=== PATIENT | female | born 1985 | race American Indian/Alaskan Native ===

== ENCOUNTER 2018-04-14 11:16 | Emergency (ER) | payer OTHER ==
--- NOTE | 2018-04-14 12:10 | Emergency Department Report ---
Blank Doc - Documentation Documentation: Patient is a 33-year-old [place] female who is presenting with 2 days of vaginal bleeding. Patient is probably 6 weeks . Patient states bleeding is at the level of.. Chest was having a pressure sensation in the suprapubic region status is 3 out of 10 in severity. Patient denies any nausea vomiting diarrhea syncope. Patient has not had an ultrasound this as of yet she was in the process of picking her VIRTUAL REALITY SPECIALIST. Patient will have a quant urinalysis ABO Rh and ultrasound done here in emergency department.
[2018-04-14 12:38] LABS: Bacteria,Urine 1+ /HPF (Negative); Bilirubin,Urine NEG (Negative); Blood,Urine LG (Negative); Color,Urine Yellow (Yellow); Protein,Urine <15 mg/dL mg/dL (Negative); Urobilinogen,Urine < 2.0 mg/dL (<2.0)
--- NOTE | 2018-04-14 14:54 | Ultrasound Report ---
ULTRASOUND OB LESS THAN 14 WEEKS FETUS ULTRASOUND OB TRANSVAGINAL HISTORY: Vaginal bleeding during . COMPARISON: None. TECHNIQUE: Transabdominal and transvaginal ultrasound with color doppler interrogation. FINDINGS: Uterus: The uterus measures 13 x 7 x 9 cm. Normal cervix. Endometrium: An intrauterine gestational sac containing a pole and yolk sac is identified. Heart rate measures 152 beats per minute. Estimated age on ultrasound as 7 weeks, 3 days. There is a large predominantly hypoechoic collection adjacent to the gestational sac on the right side. There is no internal perfusion on Doppler interrogation. This apparently represents a very large subchorionic hemorrhage measuring up to 7.1 x 2.7 cm. Right ovary: 5.4 x 1.7 x 4.4 cm. No focal abnormality. Left ovary: 3.7 x 2.2 x 2.4 cm. A 1.7 cm corpus luteum cyst is suspected. No pelvic fluid or mass is identified. Normal color doppler interrogation. IMPRESSION: Viable single intrauterine as described. Very large subchorionic hemorrhage is suspected as described.
--- NOTE | 2018-04-14 15:05 | Emergency Department Report ---
ED Female HPI - General Chief complaint: Vaginal Bleeding Stated complaint: VAGINAL BLEEDING AND PAIN Time Seen by Provider: 04/14/18 12:04 Source: patient, family Mode of arrival: Ambulatory Limitations: No Limitations - History of Present Illness Initial comments: Patient is a 33-year-old [place] female who is presenting with 2 days of vaginal bleeding. Patient is probably 6 weeks . Patient states bleeding small amounts but when it started 2 days ago she said it was more bleeding. She denies any clots. She is reporting some pelvic cramping that on and off. Reports urinary frequency and urgency but no burning. Denies any back pain. Patient does not have CIRCLE SAW OPERATOR reports she'll have 1 prior Tuesday. suprapubic region status is 3 out of 10 in severity. No alleviating factor or exacerbating factor. Patient denies any nausea vomiting diarrhea syncope. Patient has not had an ultrasound this as of yet she was in the process of picking her CIRCLE SAW OPERATOR. No medication taken. She is on a multivitamin. Denies any vaginal discharge and has no concern for STDs. MD Complaint: vaginal bleeding, pelvic pain Onset/Timin -: days(s) Location: suprapubic Radiation: non-radiating Severity: mild Severity scale (0 -10): 3 Quality: cramping Consistency: intermittent Improves with: none Worsens with: none Are you Now?: Yes (1 month) Last Menstrual Period: 02/19/18 EDC: 11/26/18 Associated Symptoms: vaginal bleeding, abdominal pain, other (urgency and frequency). denies: vaginal discharge, nausea/vomiting, fever/chills, headaches , loss of appetite, dysuria, hematuria, rash, seizure, shortness of breath, syncope, weakness - Related Data Sexually active: Yes : 2 Para: 1 (AGE 12) Previous Rx's Medication Instructions Recorded Last Taken Type Cephalexin [Keflex] 500 mg PO Q12H 7 Days #14 cap 04/14/18 Unknown Rx Vit,Calc76/Iron/Folic 1 each PO QDAY 30 Days #30 tablet 04/14/18 Unknown Rx [Pnv 29-1 Tablet] Allergies Allergy/AdvReac Type Severity Reaction Status Date / Time No Known Allergies Allergy Unverified 04/14/18 11:23 ED Review of Systems ROS: Stated complaint: VAGINAL BLEEDING AND PAIN Other details as noted in HPI Constitutional: denies: chills, fever Eyes: denies: eye discharge ENT: denies: throat pain, congestion Respiratory: denies: cough, shortness of breath, SOB with exertion, SOB at rest , stridor, wheezing Cardiovascular: denies: chest pain, palpitations, dyspnea on exertion, orthopnea , edema, syncope, paroxysmal nocturnal dyspnea Gastrointestinal: abdominal pain. denies: nausea, vomiting, diarrhea, constipation, hematemesis, melena, other Genitourinary: urgency, frequency, abnormal menses, other (vaginal spotting). denies: dysuria, hematuria, discharge, dyspareunia Musculoskeletal: denies: back pain, joint swelling, arthralgia Skin: denies: rash, lesions Neurological: denies: headache, weakness ED Past Medical Hx - Past Medical History Previous Medical History?: No - Surgical History Past Surgical History?: No - Family History Family history: no significant - Social History Smoking Status: Never Smoker Substance Use Type: None - Medications Home Medications: Home Medications Medication Instructions Recorded Confirmed Last Taken Type Cephalexin [Keflex] 500 mg PO Q12H 7 Days #14 cap 04/14/18 Unknown Rx Vit,Calc76/Iron/Folic 1 each PO QDAY 30 Days #30 tablet 04/14/18 Unknown Rx [Pnv 29-1 Tablet] ED Physical Exam - General Limitations: No Limitations General appearance: alert, in no apparent distress - Head Head exam: Present: atraumatic, normocephalic, normal inspection - Eye Eye exam: Present: normal appearance, PERRL, EOMI Pupils: Present: normal accommodation - ENT ENT exam: Present: normal exam, normal orophraynx, mucous membranes moist, TM's normal bilaterally, normal external ear exam - Neck Neck exam: Present: normal inspection, full ROM. Absent: tenderness, lymphadenopathy - Respiratory Respiratory exam: Present: normal lung sounds bilaterally. Absent: respiratory distress, chest wall tenderness - Cardiovascular Cardiovascular Exam: Present: regular rate, normal rhythm, normal heart sounds, gallop. Absent: systolic murmur, diastolic murmur - GI/Abdominal GI/Abdominal exam: Present: soft, normal bowel sounds. Absent: distended, tenderness, guarding, rebound, rigid, organomegaly, mass, pulsatile mass, hernia - Extremities Exam Extremities exam: Present: normal inspection, full ROM, normal capillary refill , other (no clubbing, cyanosis or edema. Positive pulses to all extremities.). Absent: tenderness, pedal edema, joint swelling, calf tenderness - Back Exam Back exam: Present: normal inspection, full ROM. Absent: tenderness, CVA tenderness (R), CVA tenderness (L), muscle spasm, paraspinal tenderness, vertebral tenderness, rash noted - Neurological Exam Neurological exam: Present: alert, oriented X3, normal gait - Psychiatric Psychiatric exam: Present: normal affect, normal mood - Skin Skin exam: Present: warm, dry, intact, normal color. Absent: rash ED Course Vital Signs 04/14/18 11:23 Temperature 98.2 F Pulse Rate 71 Respiratory 18 Rate Blood Pressure 116/75 O2 Sat by Pulse 100 Oximetry - Reevaluation(s) Reevaluation #1: 04/14/18 15:42 Patient given Rocephin 1 g IM in emergency room for acute cystitis without any adverse reaction ED Medical Decision Making - Lab Data Lab Results 04/14/18 04/14/18 04/14/18 Range/Units 12:24 12:24 12:27 HCG, Quant [id number] H (0-4) mIU/mL Urine Color Yellow (Yellow) Urine Turbidity Clear (Clear) Urine pH 7.0 (5.0-7.0) Ur Specific [place] 1.006 (1.003-1.030) Urine Protein <15 mg/dl (Negative) mg/dL Urine Glucose (UA) Neg (Negative) mg/dL Urine Ketones Neg (Negative) mg/dL Urine Blood Lg (Negative) Urine Nitrite Neg (Negative) Urine Bilirubin Neg (Negative) Urine Urobilinogen < 2.0 (<2.0) mg/dL Ur Leukocyte Esterase Lg (Negative) Urine WBC (Auto) 14.0 H (0.0-6.0) /HPF Urine RBC (Auto) 2.0 (0.0-6.0) /HPF U Epithel Cells (Auto) 7.0 (0-13.0) /HPF Urine Bacteria (Auto) 1+ (Negative) /HPF Blood Type O POSITIVE Urine culture pending - Radiology Data Radiology results: report reviewed Ultrasound report dictated by radiologist and reviewed by myself. Please see below for details Findings [facility] [address] [place] [address] Ultrasound Report Signed Patient: JUD MARIA MR#: [id number] : 1985 Acct:[id number] Age/Sex: 33 / F ADM Date: 04/14/18 Loc: ED Attending Dr: Ordering Physician: MATTHEW HALL MD Date of Service: 04/14/18 Procedure(s): US OB transvaginal Accession Number(s): [id number] cc: MATTHEW HALL MD ULTRASOUND OB LESS THAN 14 WEEKS FETUS ULTRASOUND OB TRANSVAGINAL HISTORY: Vaginal bleeding during . COMPARISON: None. TECHNIQUE: Transabdominal and transvaginal ultrasound with color doppler interrogation. FINDINGS: Uterus: The uterus measures 13 x 7 x 9 cm. Normal cervix. Endometrium: An intrauterine gestational sac containing a pole and yolk sac is identified. Heart rate measures 152 beats per minute. Estimated age on ultrasound as 7 weeks, 3 days. There is a large predominantly hypoechoic collection adjacent to the gestational sac on the right side. There is no internal perfusion on Doppler interrogation. This apparently represents a very large subchorionic hemorrhage measuring up to 7.1 x 2.7 cm. Right ovary: 5.4 x 1.7 x 4.4 cm. No focal abnormality. Left ovary: 3.7 x 2.2 x 2.4 cm. A 1.7 cm corpus luteum cyst is suspected. No pelvic fluid or mass is identified. Normal color doppler interrogation. IMPRESSION: Viable single intrauterine as described. Very large subchorionic hemorrhage is suspected as described. Transcribed By: TTR Dictated By: ENIO GARCIA JR, MD Electronically Authenticated By: ENIO GARCIA JR, MD Signed Date/Time: 04/14/181443 DD/ 40 TD/TT: 04/14/18 144 - Medical Decision Making ED course: This is a 33-year-old female here reporting that she is been having vaginal bleeding for the last 2 days she said it started off heavier than it is today. She says her lites and denies any spotting. She denies 2 para 1. No history of difficult . She is reporting some pelvic cramping on and off. Denies any back pain or nausea or vomiting. Denies any chest pain or shortness of breath. Denies any swelling to legs. She is here to be checked. Patient takes multivitamin and she is in the process of finding an CIRCLE SAW OPERATOR. Patient was seen and examined by myself. She had OB transabdominal pelvic and transvaginal less than 14 weeks which was dictated by radiologist and report shows Viable single intrauterine as described. Very large subchorionic hemorrhage is suspected as described. heart tone is 152 bpm. at 7 weeks and 3 days and she has left ovarian cyst. Positive quant that correlates with ultrasound. She is O+ blood and UA showing that she has a urinary tract infection with positive white count, positive leukocyte Estrace, positive bacteria and large amount of blood. This is explained to patient and she voiced understanding. I told I'll refer her to OB/ CERAMIC DESIGNER that she should call later to schedule an appointment. A/P 1: Threatened miscarriage-patient referred to my CIRCLE SAW OPERATOR and I told her to refrain from doing any strenuous activity including sexual activity. Patient will be started on vitamin and to discuss continue multivitamin Viable single intrauterine as described. Also with left ovarian cyst. Very large subchorionic hemorrhage is suspected as described. 2: Left ovarian cysts-referred to CIRCLE SAW OPERATOR 3-Vaginal bleeding-A she reports that this is very light and now only when she wipes. So better 4: Intermittent abdominal cramping : Better. Patient with nontender abdomen 6: Acute cystitis with hematuria-patient is stable and will be given Rocephin and sent home on Keflex. Urine culture sent Patient educated on and also threatened miscarriage. Educated on medication importance of taking vitamins and importance of care. Educated on what signs and symptoms to look for in having a miscarriage and if she has any increase in her vaginal bleeding she is to return to the emergency room. Educated on increasing her fluid intake, importance of taking antibiotic for urinary tract infection, her blood type and her laboratory and ultrasound results. Patient discharged home in stable condition with her family. Vital signs as stated she is a febrile. She is nontoxic in appearance. Referred to my CIRCLE SAW OPERATOR to see on 04/17/2018. Discharge home a prescription for Keflex and vitamin. Patient voiced understanding the discharge teaching - Differential Diagnosis ectopic , miscarriage, threatened miscarriage, UTI Critical care attestation.: If time is entered above; I have spent that time in minutes in the direct care of this critically ill patient, excluding procedure time. ED Disposition Clinical Impression: Threatened miscarriage, Abdominal pain during intrauterine , Vaginal bleeding, Ovarian cyst, left Acute cystitis during Qualifiers: Trimester: first trimester Qualified Code(s): O23.11 - Infections of bladder in , first trimester Disposition: DC- TO HOME OR SELFCARE Is pt being admited?: No Does the pt Need Aspirin: No Condition: Stable Instructions: Abdominal Pain in (ED), Urinary Tract Infection in Women (ED), Threatened Miscarriage (ED), Ovarian Cyst (ED) Additional Instructions: Please take antibiotic as prescribed for urinary tract infection Follow-up with my CIRCLE SAW OPERATOR for care. Call today to schedule an appointment if they're not open today then you can call on Tuesday morning and. Start taking vitamin and stopped taking multivitamin. Please increase her fluid intake Avoid doing strenuous activity. If vaginal bleeding in abdominal pain increases, return to the hospital otherwise follow-up with CIRCLE SAW OPERATOR as recommended Prescriptions: Cephalexin [Keflex] 500 mg PO Q12H 7 Days #14 cap Vit,Calc76/Iron/Folic [Pnv 29-1 Tablet] 1 each PO QDAY 30 Days #30 tablet Referrals: PRIMARY CAREMD [Primary Care Provider] - 2-3 Days [facility] [Provider Group] - 04/17/18 Forms: Work/School Release Form(ED)
[2018-04-14] MEDS ORDERED: XYLOCAINE 1% MPF 5 mL INFILTRATI ONE (15:42)
[2018-04-14] MEDS ORDERED: ROCEPHIN IM STA (15:42)
[2018-04-14 16:09] VITALS: BP 132/72
== END 2018-04-14 16:07 | disposition home or self-care (01) ==
LOC: ED 11:16
DX: O20.0 Threatened abortion (principal); O23.11 Infections of bladder in pregnancy, first trimester; O34.81 Maternal care for other abnormalities of pelvic organs, first trimester; Z3A.01 Less than 8 weeks gestation of pregnancy
CPT/HCPCS: 36415; 76801; 76817; 81001; 84702; 86900; 86901; 87086; 96372; 99284; J0696